=== PATIENT | male | born 1945 | race Caucasian/White ===

== ENCOUNTER → 2017-03-02 | Outpatient (CLI) | payer MEDICARE ==
[2017-03-02 18:03] LABS: Blood Urea Nitrogen 24 mg/dL (9-20); Non-African American GFR(MDRD) >60 (>60 ml/min/1.73 sqM)
--- NOTE | 2017-03-02 20:20 | CT ---
EXAMINATION TYPE: CT ChestAbdPelvis w con DATE OF EXAM: 03/02/2017 7:40 PM COMPARISON: 02/08/2016 HISTORY: Follow up after prostate CA and lymphoma. CT DLP: 1264.9 mGycm Automated exposure control for dose reduction was used. CONTRAST: CT scan of the chest, abdomen and pelvis is performed with Oral Contrast and with IV Contrast, patien t injected with 100 mL of Omnipaque 300. FINDINGS: The lungs are clear of infiltrate. There is no evidence of a pulmonary mass. There is no pleural effu rossana. Heart is slightly enlarged. There is no pericardial effusion. There are no hilar masses. There are some mediastinal lymph nodes that measure up to 1 cm. There is no evidence of aortic aneurysm or dissection. Liver spleen pancreas appear normal. There are clips from cholecystectomy. Bile ducts are not dilated . There is no adrenal mass. Kidneys show satisfactory contrast opacification. There is no hydronephro sis. There are some abdominal para-aortic lymph nodes that measure up to 1.3 cm. There is atherosclerotic calcification in the abdominal aorta. I see no intestinal wall thickening. There are no dilated loops. Bladder distends smoothly. There is no sign of a pelvic mass. I see no pelvic lymphadenopathy. There is no sign of a hernia. There is a 1 5% anterior wedging of L1 and 5% wedging of T12. I see no focal bone destruction. Appendix appears no rmal. IMPRESSION: There are some mediastinal and abdominal para-aortic lymph nodes that measure up to maxim um of 1.3 cm. These appear unchanged compared to the old CT scan of 02/08/2016. There are stable mild compression fractures of T12 and L1. No evidence of progression of tumor.
== END ==
LOC: RADCTMAIN 17:12
PROVIDERS: ATTEND Internal Medicine Hematology & Oncology
DX: C85.98 Non-Hodgkin lymphoma, unspecified, lymph nodes of multiple sites (principal); M48.54XA Collapsed vertebra, not elsewhere classified, thoracic region, initial encounter for fracture
CPT/HCPCS: 82565; 84520; 71260; 74177; 36415; Q9967

== ENCOUNTER → 2018-03-05 | Outpatient (CLI) | payer MEDICARE ==
[2018-03-05 17:46] LABS: Blood Urea Nitrogen 19 mg/dL (9-20)
--- NOTE | 2018-03-08 10:12 | CT ---
EXAMINATION TYPE: CT ChestAbdPelvis w con DATE OF EXAM: 03/05/2018 COMPARISON: Prior CT 03/02/2017 HISTORY: Follow up for lymphoma. CT DLP: 2055 mGycm Automated exposure control for dose reduction was used. CONTRAST: CT scan of the chest, abdomen and pelvis is performed with Oral Contrast and with IV Contrast, patien t injected with 100ml mL of Isovue 300. FINDINGS: LUNGS: The lungs are grossly clear, there is no concerning parenchymal mass or nodule identified. T here is no pleural effusion or pneumothorax seen. The tracheobronchial tree is patent. MEDIASTINUM: There are no greater than 1 cm hilar or mediastinal lymph nodes. Multiple bilateral axil bob nodes are present similar to prior exam, largest in short axis is 17 mm in the left axilla but s hows a fatty hilus and is not significantly changed, perhaps 1 mm larger. Posterior mediastinal node at the level of the aortic hiatus is present and is measuring approximately 14 to 15 mm in short axis versus prior exam where it measured approximately 11 mm No pericardial effusion is seen. AORTA: No significant abnormality is seen. OTHER: Subpectoral node on the right image 11 may grown slightly in the interval approximately 1 mm. . LIVER/GB: Liver shows low attenuation as on prior, gallbladder is absent. PANCREAS: No significant abnormality is seen. SPLEEN: No significant abnormality is seen. ADRENALS: No significant abnormality is seen. KIDNEYS: No significant abnormality is seen. REPRODUCTIVE ORGANS: No gross abnormality seen. BOWEL: No significant abnormality is seen. FREE AIR: No Free Air visible. ASCITES: None seen. RETROPERITONEAL ADENOPATHY: Periaortic retroperitoneal adenopathy is slightly more conspicuous, shor t axis measurement 17 to 18 mm on axial image 73% previous measured approximately 14 mm. Additional r etroperitoneal node on axial image 68 measures 15 to 16 mm short axis prior measuring 12 to 13 mm. There is iliac adenopathy on the left on axial image 96 shows a short axis measurement 15 mm, previou s measurement was approximately 13 to 14 mm. Inguinal nodes show a similar appearance. URINARY BLADDER: Urinary bladder shows a thickened wall but is not distended, this could be due to m uscular hypertrophy or possibly chronic outlet obstruction, correlate, consider cystitis. PELVIC ADENOPATHY: None visualized. OSSEOUS STRUCTURES: Stable IMPRESSION: Some slight interval growth of multiple lymph nodes as described is suspected.
== END | disposition home or self-care (01) ==
LOC: RADCTMAIN 17:10
PROVIDERS: ATTEND Internal Medicine Hematology & Oncology
DX: C85.98 Non-Hodgkin lymphoma, unspecified, lymph nodes of multiple sites (principal); R59.0 Localized enlarged lymph nodes; N32.89 Other specified disorders of bladder
CPT/HCPCS: 82565; 84520; 71260; 74177; 36415; Q9967

== ENCOUNTER → 2019-03-18 | Outpatient (CLI) | payer MEDICARE ==
[2019-03-18 16:23] LABS: Blood Urea Nitrogen 18 mg/dL (9-20)
--- NOTE | 2019-03-19 14:10 | CT ---
EXAMINATION TYPE: CT ChestAbdPelvis w con DATE OF EXAM: 03/18/2019 COMPARISON: 03/05/2018 and 03/02/2017 HISTORY: 74-year-old male f/u lymphoma TECHNIQUE: Contiguous axial scanning of the chest, abdomen, and pelvis performed with IV Contrast, pa tient injected with 100 mL of Isovue 300. Delayed images through the kidneys were obtained. Coronal/s agittal reconstructions performed. CT DLP: 1214.3 mGycm Automated exposure control for dose reduction was used. FINDINGS: CHEST: Heart normal size without pericardial effusion. Coronary vessel calcifications are present. Mild atherosclerotic arch calcifications. Conventional arch vessel branching anatomy. Bilateral axillary lymphadenopathy is redemonstrated measuring up to 1.7 cm on either side. This is r elatively unchanged from 03/05/2018; lymph nodes appear to have increased by a few millimeters from 03/02 suggested in the left axilla measuring 1.4 cm versus 1.1 cm in 2017. Numerous nonenlarged mediastinal lymph nodes measure up to 6 mm in the precarinal region and 1.1 cm i n the subcarinal region. Subcarinal lymph node previously measured 1.0 cm in 2018 and 7 mm in 2017. No consolidation or pleural effusion. Mild biapical pleural parenchymal scarring. ABDOMEN: Retrocrural lymphadenopathy measuring 1.6 cm versus 1.4 cm on 03/05/2018 and 9 mm on 03/02/2017. Retroperitoneal lymphadenopathy is present and shows slight overall gradual increase. For example, cu rrently measuring 1.4 cm left periaortic versus 1.3 cm on 03/05/2018 and 1.2 cm on 03/02/2017. Right common iliac chain lymph node measures 1.1 cm versus 9 mm on 03/05/2018 and 7 mm in 2017. No focal liver lesion or biliary ductal dilatation. Portal venous system is patent. Adrenal glands, kidneys, spleen, and pancreas appear within normal limits. No mesenteric lymphadenopathy. Tiny fatty umbilical hernia. No dilated small bowel, free fluid, or free air. Mild overall stool burden. Occasional diverticular change within the left side of the colon. PELVIS: Left external iliac chain lymph node measures 1.6 cm versus 1.3 cm on the prior 2 exams. Distal right external iliac chain lymph node measures 1.4 cm versus 1.2 cm in 2018 and 1 cm in 2017. Additional borderline mildly enlarged lymph nodes are present along the bilateral iliac chains most o f which are largely stable. Right inguinal lymph node measures 1.7 cm versus 1.3 cm, previously. Bladder urine distended. Pelvic lymph nodes. No abnormal fluid collection the pelvis. BONES: Mild degenerative changes of the hips. Hypertrophic facet arthropathy mid to lower lumbar spine with grade 1 anterolisthesis at L4-L5. Mild superior endplate deformity of L1 and the superior endplate Sc hmorl's node at T12. Both are chronic changes. IMPRESSION: 1. REDEMONSTRATED BILATERAL AXILLARY, RETROCRURAL, RETROPERITONEAL, ILIAC CHAIN, AND INGUINAL LYMPHAD ENOPATHY. MULTIPLE LYMPH NODES SHOW VARIABLE MINIMAL GRADUAL INCREASE BY ONLY A FEW MILLIMETERS CO MPARED TO 2018. SEE ABOVE FOR FURTHER DETAILS. FOR EXAMPLE: 2. RETROCRURAL LYMPH NODE NOW MEASURES 1.6 CM (VERSUS 1.4 AND 0.9 CM BACK IN 2018 AND 2017, RESPECTIV JEREMY), 3. A RETROPERITONEAL LYMPH NODE MEASURES UP TO 1.4 CM (VERSUS 1.3 AND 1.2 CM BACK IN 2018 AND 2017, R ESPECTIVELY), 4. RIGHT COMMON ILIAC CHAIN LYMPH NODE MEASURES 1.1 CM (VERSUS 9 MM AND 7 MM BACK IN 2018 AND 2017, R ESPECTIVELY), 5. RIGHT EXTERNAL ILIAC CHAIN LYMPH NODE MEASURES 1.4 CM (VERSUS 1.2 AND 1.0 CM BACK IN 2018 AND 2017 , RESPECTIVELY). AGAIN, SEE ABOVE FOR FURTHER DETAILS.
== END | disposition home or self-care (01) ==
LOC: RADCTMAIN 15:46
PROVIDERS: ATTEND Internal Medicine Hematology & Oncology
DX: R59.0 Localized enlarged lymph nodes (principal); C85.98 Non-Hodgkin lymphoma, unspecified, lymph nodes of multiple sites
CPT/HCPCS: 82565; 84520; 71260; 74177; 36415; Q9967

== ENCOUNTER 2019-12-15 09:01 | Day surgery (SDC) | payer MEDICARE ==
[2019-12-14 11:41] VITALS: BMI 27.9
--- NOTE | 2019-12-15 07:55 | P.GSHP ---
History of Present Illness H&P Date: 12/15/19 CHIEF COMPLAINT: Colon screen HISTORY OF PRESENT ILLNESS: The patient is a 74-year-old male who presents for colon screen. Lower endoscopy was offered for further evaluation and management. PAST MEDICAL HISTORY: Please see list. PAST SURGICAL HISTORY: Please see list. MEDICATIONS: Please see list. ALLERGIES: Please see list. SOCIAL HISTORY: No illicit drug use FAMILY HISTORY: No reports of Crohn disease or ulcerative colitis. REVIEW OF ORGAN SYSTEMS: CONSTITUTIONAL: No reports of fevers or chills. PHYSICAL EXAM: VITAL SIGNS: Stable GENERAL: Well-developed pleasant in no acute distress. HEENT: No scleral icterus. Extraocular movements grossly intact. Moist buccal mucosa. NECK: Supple without lymphadenopathy. CHEST: Unlabored respirations. Equal bilateral excursions. CARDIOVASCULAR: Regular rate and rhythm. Distal 2+ pulses. ABDOMEN: Soft, nontender, nondistended. MUSCULOSKELETAL: No clubbing, cyanosis, or edema. ASSESSMENT: 1. Colon screen. PLAN: 1. Recommend proceeding with a lower endoscopy Past Medical History Past Medical History: Cancer, GERD/Reflux, Hyperlipidemia Additional Past Medical History / Comment(s): prostate cancer-no chemo or radiation, lymphoma-no chemo or radiation History of Any Multi-Drug Resistant Organisms: None Reported Past Surgical History: Cholecystectomy, Prostate Surgery, Tonsillectomy Additional Past Surgical History / Comment(s): COLONOSCOPY,prostatectomy,dental implants Past Anesthesia/Blood Transfusion Reactions: No Reported Reaction Additional Past Anesthesia/Blood Transfusion Reaction / Comment(s): NOT ABLE TO VOID AFTER CHOLECYSTECTOMY-NEEDED CATH INSERTED Smoking Status: Never smoker - Past Family History Mother Family Medical History: CVA/TIA, Dementia Father Family Medical History: No Reported History Medications and Allergies Home Medications Medication Instructions Recorded Confirmed Type Ca/D3/Mag/Zinc/Miguel/Keyur/Mgbor 1 tab PO AC-SUPPER 04/17/16 12/14/19 History [Caltrate 600+D3+Min Chew Tab] Calcium Polycarbophil [Fibercon] 625 mg PO DAILY 04/17/16 12/14/19 History Fish Oil/Dha/Epa [Fish Oil 1,200 1 cap PO AC-LUNCH 04/17/16 12/14/19 History mg Fish Oil] Multivitamins, Thera [Multivitamin] 1 tab PO AC-LUNCH 04/17/16 12/14/19 History Pravastatin Sodium [Pravachol] 20 mg PO HS 04/17/16 12/14/19 History Allergies Allergy/AdvReac Type Severity Reaction Status Date / Time adhesive Allergy skin Verified 12/14/19 09:28 blisters,"paper tape is ok"
[2019-12-15 09:55] VITALS: TEMP 97.9
[2019-12-15] MEDS: LACTATED RINGERS 1,000 ML IV SCH ×2 (10:00→10:36)
[2019-12-15] MEDS ORDERED: PROPOFOL 10 MG/ML 20 ML VIAL IV ONE (10:38)
[2019-12-15] MEDS ORDERED: LIDOCAINE 1% INJ 10MG/ML (20 ML MDV) ONE (10:38)
--- NOTE | 2019-12-15 10:57 | P.PCN ---
Date of Procedure: 12/15/19 Description of Procedure: PREOPERATIVE DIAGNOSIS: Personal history of colon polyps Colonoscopy screening, high risk POSTOPERATIVE DIAGNOSIS: Personal history of colon polyps Colonoscopy screening, high risk OPERATION: Colonoscopy to the ileocecal valve and appendiceal orifice. SURGEON: Tyra Ba MD. ANESTHESIA: MAC. INDICATIONS: The patient is a 74-year-old male who presents for colonoscopy screening. Last colonoscopy 5 years ago. Benefits and risks were described and informed consent was obtained. DESCRIPTION OF PROCEDURE: The patient had undergone Suprep. He had been brought into the operating room and laid in the left lateral decubitus position. After adequate intravenous sedation, the rectum was examined with 2% lidocaine jelly. The prostatic fossa was unremarkable. No external hemorrhoids were encountered. The rectal tone was within normal limits. No lesions were palpated in the rectal vault. An Olympus colonoscope was advanced until the ileocecal valve and appendiceal orifice were clearly viewed. The prep was excellent with clear visualization of the mucosal folds. No large scattered diverticulosis was encountered. No colonic polyps were found. No evidence of focal colitis was found. Retroflexion of the scope demonstrated grade 1 internal hemorrhoids without active bleeding or inflammation. The colon was desufflated. The patient had tolerated the procedure well. Withdrawal time was over 6 minutes. FINDINGS: Aronchick preparation quality scale 1 (1-5) Internal hemorrhoids, grade 1 No external prolapsed hemorrhoids. No arteriovenous malformations. No adenomatous polyps. No focal colitis. RECOMMENDATIONS: Lower endoscopy in 5 years, 2024 or Cologaurd Plan - Discharge Summary Discharge Rx Participant: No New Discharge Prescriptions: No Action Pravastatin Sodium [Pravachol] 20 mg PO HS Multivitamins, Thera [Multivitamin] 1 tab PO AC-LUNCH Fish Oil/Dha/Epa [Fish Oil 1,200 mg Fish Oil] 1 cap PO AC-LUNCH Calcium Polycarbophil [Fibercon] 625 mg PO DAILY Ca/D3/Mag/Zinc/Miguel/Keyur/Mgbor [Caltrate 600+D3+Min Chew Tab] 1 tab PO AC- SUPPER Discharge Medication List Ca/D3/Mag/Zinc/Miguel/Keyur/Mgbor [Caltrate 600+D3+Min Chew Tab] 1 tab PO AC-SUPPER 04/17/16 [History] Calcium Polycarbophil [Fibercon] 625 mg PO DAILY 04/17/16 [History] Fish Oil/Dha/Epa [Fish Oil 1,200 mg Fish Oil] 1 cap PO AC-LUNCH 04/17/16 [History] Multivitamins, Thera [Multivitamin] 1 tab PO AC-LUNCH 04/17/16 [History] Pravastatin Sodium [Pravachol] 20 mg PO HS 04/17/16 [History] Follow up Appointment(s)/Referral(s): Tyra Ba MD [STAFF PHYSICIAN] - As Needed Patient Instructions/Handouts: *Surgery [facility] - (Anesthesia) Endoscopy Discharge Instructions Activity/Diet/Wound Care/Special Instructions: Repeat colonoscopy 5 years, 2024 or Cologaurd Discharge Disposition: HOME SELF-CARE
[2019-12-15 11:46] VITALS: BP 122/74; PULSE 66; RESP 20
== END 2019-12-15 11:45 | disposition home or self-care (01) ==
LOC: ORWHC2ENDO 09:01
PROVIDERS: ATTEND Surgery Plastic and Reconstructive Surgery
DX: Z12.11 Encounter for screening for malignant neoplasm of colon (principal); Z86.010 Personal history of colon polyps; K64.0 First degree hemorrhoids; K21.9 Gastro-esophageal reflux disease without esophagitis; E78.5 Hyperlipidemia, unspecified; Z85.46 Personal history of malignant neoplasm of prostate; Z85.72 Personal history of non-Hodgkin lymphomas; Z96.0 Presence of urogenital implants; Z90.49 Acquired absence of other specified parts of digestive tract; Z90.79 Acquired absence of other genital organ(s); Z82.3 Family history of stroke; Z82.0 Family history of epilepsy and other diseases of the nervous system; Z79.899 Other long term (current) drug therapy; Z91.09 Other allergy status, other than to drugs and biological substances
CPT/HCPCS: J2001; J2704; G0105

== ENCOUNTER → 2020-05-03 | Outpatient (CLI) | payer MEDICARE ==
[2020-05-03 15:26] LABS: African American GFR (CKD) >90 (>60 ml/min/1.73 sqM); Blood Urea Nitrogen 13 mg/dL (9-20); Non-African American GFR(CKD) 87 (>60 ml/min/1.73 sqM)
--- NOTE | 2020-05-03 17:07 | CT ---
EXAMINATION TYPE: CT ChestAbdPelvis w con DATE OF EXAM: 05/03/2020 COMPARISON: CT March 18, 2019 and older CTs HISTORY: Follow up Non-Hodgkin lymphoma CT DLP: 989 mGycm. Automated Exposure Control for Dose Reduction was Utilized. CONTRAST: CT scan of the thorax, abdomen and pelvis is performed with oral and with IV Contrast, patient inject ed with 100 mL of Isovue 300. FINDINGS: LUNGS: The lungs are grossly clear, there is no concerning parenchymal mass or nodule identified. T here is no pleural effusion or pneumothorax seen. The tracheobronchial tree is patent. MEDIASTINUM: There are no persistent or new greater than 1 cm hilar or mediastinal lymph nodes. No pericardial effusion is seen. Heart size stable and upper limits of normal. Coronary artery calcific ation is redemonstrated which is noted marker for underlying coronary artery disease. OTHER: Marked interval improvement in bilateral axillary adenopathy now all subcentimeter in short ax is. LIVER/GB: Cholecystectomy clips are redemonstrated. PANCREAS: No significant abnormality is seen. SPLEEN: No significant abnormality is seen. ADRENALS: No significant abnormality is seen. KIDNEYS: Persistent circumaortic left renal vein which is normal variant. Slightly low-lying bladder or possible prolapse noted. BOWEL: Oral contrast reaches level of proximal transverse colon. There is no suspicious small or larg e bowel dilatation. Normal-appearing appendix from CT abdomen the right abdomen noted. GENITAL ORGANS: Prostate not well seen and may be surgically absent. LYMPH NODES: Marked interval improvement in abnormal retroperitoneal lymph nodes throughout the abdom en with some residual subcentimeter lymph nodes. Interval improvement in iliac chain adenopathy witho ut persisting greater than 1 cm lymph nodes. For reference left proximal external iliac lymph node me asured 2.2 x 1.6 cm prior study axial image 93 now measures 9 x 8 mm current study axial image 100. M arked interval improvement in bilateral groin adenopathy with only subcentimeter residual lymph nodes seen. OSSEOUS STRUCTURES: Slight scoliotic curvature. Mild height loss involving superior L1 endplate redem onstrated. Persistent moderate disc space narrowing and vacuum disc phenomenon L5-S1 level. OTHER: No significant additional abnormality is seen. IMPRESSION: Positive treatment response with marked interval improvement in abnormal adenopathy above and below diaphragm. No persistent or new greater than 1 cm adenopathy noted.
== END | disposition home or self-care (01) ==
LOC: RADCTMAIN 14:43
PROVIDERS: ATTEND Internal Medicine Hematology & Oncology
DX: C85.98 Non-Hodgkin lymphoma, unspecified, lymph nodes of multiple sites (principal)
CPT/HCPCS: 82565; 84520; 71260; 74177; 36415; Q9967

== ENCOUNTER → 2022-06-09 | Outpatient (CLI) | payer MEDICARE ==
[2022-06-09 12:33] LABS: African American GFR (CKD) >90 (>60 ml/min/1.73 sqM); Blood Urea Nitrogen 21 mg/dL (9-20); Non-African American GFR(CKD) 84 (>60 ml/min/1.73 sqM)
--- NOTE | 2022-06-09 14:32 | CT ---
EXAMINATION TYPE: CT ChestAbdPelvis w con CT DLP: 771.50 mGycm, Automated exposure control for dose reduction was used. DATE OF EXAM: 06/09/2022 1:46 PM COMPARISON: CT chest abdomen pelvis 05/03/2020. CLINICAL INDICATION:Male, 77 years old with history of C61 Prostate ca; PHH, Prostate CA Technique: Multiple axial images of the chest, abdomen, and pelvis were obtained following the intrav enous administration of 70 Isovue-300. Oral contrast was administered. Two-dimensional coronal and sa gittal reconstructions were obtained. Findings: CHEST: LUNGS/ PLEURA: No pneumothorax, pleural effusion, or focal consolidation. No suspicious pulmonary nod ule. AIRWAY: Patent and unremarkable. HEART: Size within normal limits. No pericardial effusion. MEDIASTINUM: No pathologic adenopathy within the mediastinum or hilum. VASCULATURE: No aortic aneurysm. Atherosclerotic calcification of the aorta. Coronary artery calcifi cations identified. MUSCULOSKELETAL: No acute osseous abnormalities. No suspicious osseous lesions. SOFT TISSUES/LYMPH NODES: Marginal increase in size of right axillary lymph node measuring 0.8 cm (se ksenia 3, image 13), previously 0.6 cm. Remaining bilateral axillary lymph nodes are subcentimeter in s ize. LOWER NECK: No significant findings. ABDOMEN: ABDOMEN LIVER: Dysmorphic liver without suspicious hepatic lesion. GALLBLADDER AND BILE DUCTS: Post cholecystectomy. No biliary duct dilatation. PANCREAS: Unremarkable. SPLEEN: Unremarkable. ADRENAL GLANDS: Unremarkable. KIDNEYS AND URETERS: No evidence of hydronephrosis or renal calculus. The ureters are unremarkable. Nonspecific bilateral perinephric fat stranding. Subcentimeter left inferior pole cyst. Circumaortic left renal vein. PELVIS BLADDER: Unremarkable REPRODUCTIVE: Post surgical changes from prostatectomy. No CT evidence for local recurrence. ABDOMEN & PELVIS STOMACH AND BOWEL: Stomach and duodenum are unremarkable. No focal wall thickening or surrounding inf iltrate changes. The appendix is within normal limits. No evidence of bowel obstruction. PERITONEUM: No evidence of pneumoperitoneum or free fluid. Similar appearing stranding. VASCULATURE: Moderate atherosclerotic calcifications are present throughout the abdominal aorta and i ts branches. MUSCULOSKELETAL: No acute osseous abnormalities. No suspicious osseous lesions. Mild height loss invo lving superior L1 endplate redemonstrated. Persistent moderate disc space narrowing and vacuum disc p henomenon at L5-S1 level. LYMPH NODES: No suspicious adenopathy greater than 1 cm in short axis. With example including a left external iliac chain lymph node measuring 7 mm (series 3, image 95), previously 8 mm. SOFT TISSUE/ABDOMINAL WALL: Unremarkable IMPRESSION: Chest: Marginal increase in size of right axillary lymph node measuring 0.8 cm, previously 0.6 cm. No other new suspicious adenopathy. Attention on follow-up. Abdomen and pelvis: No persistent or new greater than 1 cm adenopathy noted.
== END | disposition home or self-care (01) ==
LOC: RADCTMAIN 11:41
PROVIDERS: ATTEND Internal Medicine Hematology & Oncology
DX: C61 Malignant neoplasm of prostate (principal)
CPT/HCPCS: 82565; 84520; 71260; 74177; 36415; Q9967 ×2

== ENCOUNTER 2022-08-23 10:32 | Emergency (ER) | payer MEDICARE ==
[2022-08-23 10:50] VITALS: BP 165/81; PULSE 51; RESP 16; TEMP 97.8
--- NOTE | 2022-08-23 11:45 | ED ---
General Adult HPI <Alonso Zepeda - Last Filed: 08/23/22 11:56> - General Source: patient Mode of arrival: ambulatory Limitations: no limitations <Lisa Henry - Last Filed: 08/23/22 13:39> - General Chief complaint: Urogenital Stated complaint: Surgery complications, sent by Time Seen by Provider: 08/23/22 10:59 - History of Present Illness Initial comments: Patient is a 77-year-old male who presents for evaluation of surgical complication. 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 Patient states this morning he noticed a thin yellow coat over the head of his penis. His pain is unchanged since the surgery was performed. He denies fever, chills, penile discharge, burning with urination. (Lisa Henry) - Related Data Home Medications Medication Instructions Recorded Confirmed Ca/D3/Mag/Zinc/Miguel/Keyur/Mgbor 1 tab PO AC-SUPPER 04/17/16 12/15/19 [Caltrate 600+D3+Min Chew Tab] Fish Oil/Dha/Epa [Fish Oil 1,200 1 cap PO AC-LUNCH 04/17/16 12/15/19 mg Fish Oil] Multivitamins, Thera [Multivitamin] 1 tab PO AC-LUNCH 04/17/16 12/15/19 Pravastatin Sodium [Pravachol] 20 mg PO HS 04/17/16 12/15/19 calcium polycarbophiL [Fibercon] 625 mg PO DAILY 04/17/16 12/15/19 Previous Rx's Medication Instructions Recorded Cephalexin [Keflex] 250 mg PO Q6HR 5 Days #20 cap 08/23/22 Allergies Allergy/AdvReac Type Severity Reaction Status Date / Time adhesive Allergy skin Verified 08/23/22 10:49 blisters,"paper tape is ok" Review of Systems ROS Other: All systems not noted in ROS Statement are negative. <Alonso Zepeda - Last Filed: 08/23/22 11:56> ROS Other: All systems not noted in ROS Statement are negative. <Lisa Henry - Last Filed: 08/23/22 13:39> ROS Statement: Those systems with pertinent positive or pertinent negative responses have been documented in the HPI. Past Medical History Past Medical History: Cancer, GERD/Reflux, Hyperlipidemia Additional Past Medical History / Comment(s): prostate cancer-no chemo or radiation, lymphoma-no chemo or radiation History of Any Multi-Drug Resistant Organisms: None Reported Past Surgical History: Cholecystectomy, Prostate Surgery, Tonsillectomy Additional Past Surgical History / Comment(s): COLONOSCOPY,prostatectomy,dental implants Past Anesthesia/Blood Transfusion Reactions: No Reported Reaction Additional Past Anesthesia/Blood Transfusion Reaction / Comment(s): NOT ABLE TO VOID AFTER CHOLECYSTECTOMY-NEEDED CATH INSERTED Past Psychological History: No Psychological Hx Reported Smoking Status: Never smoker Past Alcohol Use History: Occasional Past Drug Use History: None Reported - Past Family History Mother Family Medical History: CVA/TIA, Dementia Father Family Medical History: No Reported History <Lisa Henry - Last Filed: 08/23/22 13:39> General Exam Limitations: no limitations General appearance: alert, in no apparent distress Head exam: Present: atraumatic, normocephalic, normal inspection Respiratory exam: Present: normal lung sounds bilaterally. Absent: respiratory distress, wheezes, rales, rhonchi, stridor Cardiovascular Exam: Present: regular rate, normal rhythm, normal heart sounds. Absent: systolic murmur, diastolic murmur, rubs, gallop, clicks exam: Present: circumcision (surgical changes without erythema, swelling, or drainage from surgical stitches. Oily like coating over glans, light yellow in color ) Neurological exam: Present: alert, oriented X3, CN II-XII intact Psychiatric exam: Present: normal affect, normal mood Skin exam: Present: warm, dry, intact, normal color. Absent: rash <Lisa Henry - Last Filed: 08/23/22 13:39> Course Vital Signs 08/23/22 10:46 Temperature 97.8 F Pulse Rate 51 L Respiratory 16 Rate Blood Pressure 165/81 O2 Sat by Pulse 98 Oximetry Medical Decision Making <Alonso Zepeda - Last Filed: 08/23/22 11:56> <Lisa Henry - Last Filed: 08/23/22 13:39> - Medical Decision Making I spoke with Dr. Dailey about the patient he wanted empirically to treat the patient some Keflex and follow-up in the office as an outpatient. Patient is comfortable with this. (Alonso Zepeda) This is a 77-year-old male who presents with circumcision complication. There are surgical changes of the glans without erythema, swelling, or drainage from stitches. There is an oily like coating over glans, light yellow in color. Dr. Zepeda is my attending. (Lisa Henry) Disposition <Alonso Zepeda - Last Filed: 08/23/22 11:56> Is patient prescribed a controlled substance at d/c from ED?: No Time of Disposition: 11:45 <Lisa Henry - Last Filed: 08/23/22 13:39> Clinical Impression: Circumcision complication Disposition: HOME SELF-CARE Condition: Good Instructions (If sedation given, give patient instructions): Adult Male Circumcision (DC) Additional Instructions: Take antibiotic as directed. Follow-up with Dr. An in one to 2 days. Return to the emergency department experience new, concerning, or worsening symptoms. Prescriptions: Cephalexin [Keflex] 250 mg PO Q6HR 5 Days #20 cap Referrals: Sergey Martinez MD [Primary Care Provider] - 1-2 days
== END 2022-08-23 11:50 | disposition home or self-care (01) ==
LOC: EC 10:32
DX: N99.110 Postprocedural urethral stricture, male, meatal (principal); E78.5 Hyperlipidemia, unspecified; Z91.048 Other nonmedicinal substance allergy status
CPT/HCPCS: 99283

== ENCOUNTER → 2024-04-01 | Outpatient (CLI) | payer MEDICARE ==
--- NOTE | 2024-04-01 18:44 | CA ---
Transthoracic Echo Report Name: Chapito Celestin Age: 79 Gender: M : 1945 Exam Date: 04/01/2024 16:56 Exam Location: [facility] Ht (in): 70 Wt (lb): 175 Ordering Physician: Sergey Martinez MD Attending/Referring Phys: Jonna Way [facility] Manager [employer] Katherine Soria RDCS Procedure CPT: Indications: R53.83 FATIGUE R00.1 BRADYCARDIA, UNSPECIFIED Cardiac Hx: Technical Quality: Good Contrast 1: Total Dose (mL): Contrast 2: Total Dose (mL): MEASUREMENTS (Male / Female) Normal Values 2D ECHO LV Diastolic Diameter PLAX 5.1 cm 4.2 - 5.9 / 3.9 - 5.3 cm LV Systolic Diameter PLAX 3.3 cm IVS Diastolic Thickness 1.1 cm 0.6 - 1.0 / 0.6 - 0.9 cm LVPW Diastolic Thickness 1.0 cm 0.6 - 1.0 / 0.6 - 0.9 cm LV Relative Wall Thickness 0.4 RV Internal Dim ED PLAX 3.3 cm LA Systolic Diameter LX 3.8 cm 3.0 - 4.0 / 2.7 - 3.8 cm LV Diastolic Volume MOD 4C 133.0 cm??? LV Systolic Volume MOD 4C 42.3 cm??? LV Ejection Fraction MOD 4C 68.2 % LV Cardiac Index MOD 4C 2233.4 cm???/min???m??? LV Diastolic Length 4C 8.5 cm LV Systolic Length 4C 6.2 cm LV Diastolic Volume MOD 2C 110.6 cm??? LV Systolic Volume MOD 2C 32.6 cm??? LV Ejection Fraction MOD 2C 70.5 % LV Cardiac Index MOD 2C 1920.2 cm???/min???m??? LV Diastolic Length 2C 8.3 cm LV Systolic Length 2C 6.3 cm LA Volume 54.7 cm??? 18 - 58 / 22 - 52 cm??? LA Volume Index 27.5 cm???/m??? 16 - 28 cm???/m??? M-MODE Aortic Root Diameter MM 3.4 cm MV E Point Septal Separation 0.4 cm AV Cusp Separation MM 2.2 cm DOPPLER AV Peak Velocity 128.4 cm/s AV Peak Gradient 6.6 mmHg MV Area PHT 2.0 cm??? Mitral E Point Velocity 69.1 cm/s Mitral A Point Velocity 84.7 cm/s Mitral E to A Ratio 0.8 MV Deceleration Time 376.8 ms FINDINGS Left Ventricle Left ventricular ejection fraction is estimated at 55-60 %. Left ventricular cavity size normal. Left ventricular wall thickness normal. Normal left ventricular wall motion. Right Ventricle Normal right ventricular size and function. Unable to estimate the right ventricular systolic pressure. Right Atrium Normal right atrial size. No right atrial thrombus or mass seen. Left Atrium Normal left atrial size. No left atrial thrombus or mass present. Mitral Valve Structurally normal mitral valve. No mitral stenosis, regurgitation or prolapse. Aortic Valve Trileaflet aortic valve. No aortic valve stenosis or regurgitation. Tricuspid Valve Structurally normal tricuspid valve. No tricuspid stenosis, regurgitation or prolapse. Pulmonic Valve Structurally normal pulmonic valve. No pulmonic regurgitation. Pericardium No pericardial effusion. No pleural effusion. Aorta Normal size aortic root and proximal ascending aorta. CONCLUSIONS Normal LV systolic function Previewed by: Dr. Josue Cuenca MD (Electronically Signed) Final Date: 01 Apr 2024 18:44
== END | disposition home or self-care (01) ==
LOC: RADECHMAIN 16:42
PROVIDERS: ATTEND Family Medicine
DX: R00.1 Bradycardia, unspecified (principal); R53.83 Other fatigue
CPT/HCPCS: 93306

== ENCOUNTER → 2024-04-05 | Outpatient (CLI) | payer MEDICARE ==
--- NOTE | 2024-04-16 04:55 | HM ---
HOLTER MONITOR REPORT The patient was monitored for 24 hours. Baseline rhythm is sinus mechanism. The average rate is 55 beats per minute, minimum 40, maximum 92 beats per minute. Ventricular ectopic activity was present in the form of rare single PVCs. Supraventricular ectopic activity was present in the form of rare single PACs. No diary was available. CONCLUSION: 1. Sinus mechanism baseline rhythm. 2. Rare ventricular ectopic activity. 3. Rare supraventricular ectopic activity. 4. No diary was available. MMODL / IJN: [id number] /
== END | disposition home or self-care (01) ==
LOC: RADECHMAIN 07:22
PROVIDERS: ATTEND Family Medicine
DX: I49.3 Ventricular premature depolarization (principal); R53.83 Other fatigue; R00.1 Bradycardia, unspecified
CPT/HCPCS: 93225; 93226

== ENCOUNTER → 2024-05-17 | Outpatient (CLI) | payer MEDICARE ==
[2024-05-17 12:26] LABS: African American GFR (CKD) >90 (>60 ml/min/1.73 sqM); Blood Urea Nitrogen 21 mg/dL (9-20); Non-African American GFR(CKD) 88 (>60 ml/min/1.73 sqM)
--- NOTE | 2024-05-17 14:28 | CT ---
EXAMINATION TYPE: CT ChestAbdPelvis w con DATE OF EXAM: 05/17/2024 COMPARISON: 06/09/2022 HISTORY: f/u lymphoma CT DLP: 908.1 mGycm CONTRAST: CT scan of the chest, abdomen and pelvis is performed with Oral Contrast and with IV Contrast, patien t injected with 100 mL of Isovue 300. CT Chest: LUNGS: The lungs are clear and free of infiltrate or atelectasis. No pulmonary nodule or mass is det ected. No pleural effusion or CT evidence of interstitial lung disease. MEDIASTINUM: Thoracic aorta is of normal caliber. The heart is not enlarged. No evidence for media stinal mass or adenopathy. HILAR STRUCTURES: No evidence for mass. No hilar adenopathy is appreciated. OTHER: No significant abnormality. CONTRAST CT ABDOMEN AND PELVIS FINDINGS: LIVER/GB: The gallbladder is surgically absent. No space occupying hepatic lesion. Biliary tree is of normal caliber. PANCREAS: No inflammation. No distinct mass. SPLEEN: No splenic enlargement. No lesion seen. ADRENALS: No nodule. No thickening. KIDNEYS/BLADDER: No hydronephrosis. No nephrolithiasis. No disctinct renal mass. BOWEL: Normal appendix. Normal bowel caliber. No inflammation. GENITAL ORGANS: Diminutive prostate gland. LYMPH NODES: No greater than 1cm abdominal or pelvic lymph nodes are appreciated. AORTA: No significant abnormality. OSSEOUS STRUCTURES: No significant abnormality is seen. OTHER: No significant additional abnormality is seen. IMPRESSION: 1. No evidence for adenopathy within the chest abdomen or pelvis. No significant acute process seen.
== END | disposition home or self-care (01) ==
LOC: RADCTMAIN 11:46
PROVIDERS: ATTEND Internal Medicine Hematology & Oncology
DX: C61 Malignant neoplasm of prostate (principal); C85.98 Non-Hodgkin lymphoma, unspecified, lymph nodes of multiple sites; E78.5 Hyperlipidemia, unspecified; Z71.3 Dietary counseling and surveillance
CPT/HCPCS: 82565; 84520; 71260; 74177; 36415; Q9967

== ENCOUNTER → 2025-05-09 | Outpatient (CLI) | payer MEDICARE ==
[2025-05-09 14:52] LABS: African American GFR (CKD) >90 (>60 ml/min/1.73 sqM); Blood Urea Nitrogen 20 mg/dL (9-20); Non-African American GFR(CKD) 86 (>60 ml/min/1.73 sqM)
--- NOTE | 2025-05-12 18:51 | CT ---
EXAMINATION TYPE: CT ChestAbdPelvis w con DATE OF EXAM: 05/09/2025 4:26 PM COMPARISON: 05/17/2024 CLINICAL INDICATION: Male, 80 years old with history of C61 MALIGNANT NEOPLASM OF PROSTATE, f/u prost ate ca, lymphoma TECHNIQUE: CT ChestAbdPelvis w con , with sagittal coronal reformats. If MIP/3-D images were created, there are created on a separate workstation. Contrast used:100 mL mL of Isovue 300 with IV Contrast, (none if empty) Oral contrast used: with Oral Contrast (none if empty) CT DLP: 1081.4 mGycm, Automated exposure control for dose reduction was used. FINDINGS: CT CHEST: Portion of the thyroid visualized is normal. No suspicious lung nodules or focal infiltrates are present. No enlarged mediastinal or hilar adenopathy is evident. No significant coronary artery calcification s. The ascending aorta diameter at the level of the main pulmonary artery is 3.5 cm. The main pulmonary artery diameter at the bifurcation is 2.4 cm. Lymphadenopathy: There is a 0.9 cm retrocrural lymph node. Normal less than 0.5 cm. No enlarged media stinal or hilar lymph nodes are evident. No suspicious axillary lymphadenopathy. CT ABDOMEN: Liver: Normal Spleen: Normal Pancreas: Normal Adrenal glands: The adrenal glands are normal. Gallbladder: Normal Kidneys: No masses are evident. No hydronephrosis is present. No cysts are present. Delayed images were obtained through the kidneys, which remain unremarkable. Aorta: Vascular calcification is within the aorta. Inferior vena cava: Normal. CT PELVIS: Loops of bowel within the abdomen and pelvis are normal. There are loops of bowel which are incom pletely distended or lack oral contrast limiting their evaluation. Appendix: Not identified. No dilated tubular structure or inflammatory changes evident. Urinary bladder: Normal. Genitourinary structures: Prostate appears within normal limits. Patient's known prostate cancer is n ot identified by CT exam. Osseous structures: No suspicious lytic or sclerotic lesions. Degenerative disc changes within the L5 -S1 level. Facet degenerative change within the lumbar spine Lymphadenopathy: No periaortic or retrocaval adenopathy. No suspicious celiac axis adenopathy. No meliza picious adenopathy at the level of the renal arteries. No mesenteric adenopathy. No suspicious iliac chain or inguinal lymph nodes. IMPRESSION: 1. There is an 0.9 cm retrocrural lymph node which has enlarged from comparison. No additional suspic ious lymphadenopathy identified. 2. No suspicious changes to suggest metastatic prostate disease. [facility], , 05/12/2025 6:49 PM
== END | disposition home or self-care (01) ==
LOC: RADCTMAIN 14:14
PROVIDERS: ATTEND Internal Medicine Hematology & Oncology
DX: C61 Malignant neoplasm of prostate (principal); C85.98 Non-Hodgkin lymphoma, unspecified, lymph nodes of multiple sites; E78.5 Hyperlipidemia, unspecified; Z71.3 Dietary counseling and surveillance
CPT/HCPCS: 82565; 84520; 71260; 74177; 36415; Q9967